=== PATIENT | female | born 1975 | race Caucasian/White ===

== ENCOUNTER 2017-12-03 15:13 | Emergency (ER) | payer BC, OTHER ==
--- NOTE | 2017-12-03 15:39 | EDM.PDOC ---
ED HPI GENERAL MEDICAL PROBLEM - General Chief Complaint: Back Pain or Injury Stated Complaint: BACK PAIN, L ARM TINGLING Time Seen by Provider: 12/03/17 15:38 - History of Present Illness INITIAL COMMENTS - FREE TEXT/NARRATIVE: 42-year-old female presents emergency room with sudden onset back pain left arm numbness tingling and heaviness. The patient was at work she shifted in her chair had sudden mid back pain at the lower level of her scapula. With this the pain was very sharp lasted about 30 minutes. This pain did for the most part resolve to fairly mild pain with this she had heaviness and tingling in her left arm. This has remained through the remainder of the day. She did not have nausea or vomiting with this and really no shortness of breath she's had no neck pain or lower back pain. The pains been between her shoulder blades slightly below this level she has not had knee pain in the front of her chest. The patient does smoke. Middle Back Pain Score (Numeric/FACES): 8 - Related Data Allergies Allergy/AdvReac Type Severity Reaction Status Date / Time amoxicillin Allergy Vomiting Verified 12/03/17 15:22 erythromycin base Allergy Vomiting Verified 12/03/17 15:22 Penicillins Allergy Hives Verified 12/03/17 15:22 tetracycline Allergy Vomiting Verified 12/03/17 15:22 Home Meds: Home Meds FLUoxetine [PROzac] 40 mg PO DAILY 12/03/17 [History] Gabapentin [Neurontin] 300 mg PO DAILY 12/03/17 [History] Levothyroxine Sodium [Synthroid] 150 mcg PO DAILY 12/03/17 [History] Omeprazole 40 mg PO DAILY 12/03/17 [History] Venlafaxine HCl [Venlafaxine HCl ER] 300 mg PO DAILY 12/03/17 [History] busPIRone [Buspar] 15 mg PO BID 12/03/17 [History] Past Medical History Cardiovascular History: Reports: High Cholesterol Gastrointestinal History: Reports: GERD Psychiatric History: Reports: Anxiety, Depression Endocrine/Metabolic History: Reports: Hypothyroidism - Past Surgical History HEENT Surgical History: Reports: Tonsillectomy GI Surgical History: Reports: Cholecystectomy Social & Family History - Tobacco Use Smoking Status *Q: Current Every Day Smoker Years of Tobacco use: 9 Packs/Tins Daily: 0.4 - Recreational Drug Use Recreational Drug Use: No ED ROS GENERAL - Review of Systems Review Of Systems: See Below Constitutional: Reports: No Symptoms HEENT: Reports: No Symptoms Respiratory: Reports: No Symptoms Cardiovascular: Denies: Chest Pain Endocrine: Reports: No Symptoms GI/Abdominal: Reports: No Symptoms : Reports: No Symptoms Musculoskeletal: Reports: Back Pain. Denies: No Symptoms Skin: Reports: No Symptoms Neurological: Reports: No Symptoms Psychiatric: Reports: No Symptoms Hematologic/Lymphatic: Reports: No Symptoms Immunologic: Reports: No Symptoms ED EXAM, UPPER BACK/NECK PAIN - Physical Exam Exam: See Below Exam Limited By: No Limitations General Appearance: Alert, No Apparent Distress Head Exam: Atraumatic, Normocephalic Neck Exam: Non-Tender, Full Range of Motion, Normal Alignment, Normal Inspection GI/Abdominal: Normal Bowel Sounds, Soft, Non-Tender Back Exam: Normal Inspection. No: CVA Tenderness (L), CVA Tenderness (R) Extremities: Other (Left arm examined no appreciable problems identified around the shoulder she has no tenderness in the deltoid bandage area and no provoking discomfort in the shoulder elbow has good range of motion no difficulties wrist appears normal no abnormalities she does have a positive Tinel's with distal paresthesias reversed Phalen's and Phalen's are both mildly positive) Neurologic: No Motor/Sensory Deficits Psychiatric: Normal Affect, Normal Mood Skin Exam: Normal Color, Warm/Dry Lymphatic: No Adenopathy Course - Vital Signs Last Recorded V/S: Last Vital Signs Temp 36.8 C 12/03/17 15:25 Pulse 100 12/03/17 15:25 Resp 20 12/03/17 15:25 BP 160/94 H 12/03/17 15:25 Pulse Ox 100 12/03/17 15:25 - Orders/Labs/Meds Orders: Active Orders 24 hr Category Date Time Status EKG 12 Lead [EKG Documentation Completion] [RC] STAT Care 12/03/17 15:35 Active Chest 1V Frontal [CR] Stat Exams 12/03/17 15:59 Taken Labs: Laboratory Tests 12/03/17 12/03/17 12/03/17 Range/Units 16:10 16:10 16:10 WBC 6.69 (3.98-10.04) K/mm3 RBC 4.70 (3.98-5.22) M/mm3 Hgb 14.5 (11.2-15.7) gm/L Hct 43.6 (34.1-44.9) % MCV 92.8 (79.4-94.8) fl MCH 30.9 (25.6-32.2) pg MCHC 33.3 (32.2-35.5) g/dl RDW Std Deviation 44.3 (36.4-46.3) fL Plt Count 287 (182-369) K/mm3 MPV 9.5 (9.4-12.3) fl Neutrophils % (Manual) 54 (40-60) % Band Neutrophils % 0 (0-10) % Lymphocytes % (Manual) 33 (20-40) % Atypical Lymphs % 0 % Monocytes % (Manual) 13 H (2-10) % Eosinophils % (Manual) 0 L (0.7-5.8) % Basophils % (Manual) 0 L (0.1-1.2) Platelet Estimate Adequate RBC Morph Comment Normal PT 10.0 (8.0-13.0) SECONDS INR 0.94 APTT 28 (22-36) SECONDS D-Dimer, Quantitative (0.19-0.59) mg/L Sodium 137 (136-145) mEq/L Potassium 3.8 (3.5-5.1) mEq/L Chloride 101 (98-107) mEq/L Carbon Dioxide 30 (21-32) mEq/L Anion Gap 9.8 (5-15) BUN 12 (7-18) mg/dL Creatinine 0.8 (0.55-1.02) mg/dL Est Cr Clr Drug Dosing 84.11 mL/min Estimated GFR (MDRD) > 60 (>60) mL/min BUN/Creatinine Ratio 15.0 (14-18) Glucose 96 (74-106) mg/dL Calcium 9.6 (8.5-10.1) mg/dL Total Bilirubin 0.3 (0.2-1.0) mg/dL AST 13 L (15-37) U/L ALT 20 (14-59) U/L Alkaline Phosphatase 98 (46-116) U/L Troponin I < 0.017 (0.00-0.056) ng/mL Total Protein 7.3 (6.4-8.2) g/dl Albumin 3.7 (3.4-5.0) g/dl Globulin 3.6 gm/dL Albumin/Globulin Ratio 1.0 (1-2) 12/03/17 Range/Units 16:10 WBC (3.98-10.04) K/mm3 RBC (3.98-5.22) M/mm3 Hgb (11.2-15.7) gm/L Hct (34.1-44.9) % MCV (79.4-94.8) fl MCH (25.6-32.2) pg MCHC (32.2-35.5) g/dl RDW Std Deviation (36.4-46.3) fL Plt Count (182-369) K/mm3 MPV (9.4-12.3) fl Neutrophils % (Manual) (40-60) % Band Neutrophils % (0-10) % Lymphocytes % (Manual) (20-40) % Atypical Lymphs % % Monocytes % (Manual) (2-10) % Eosinophils % (Manual) (0.7-5.8) % Basophils % (Manual) (0.1-1.2) Platelet Estimate RBC Morph Comment PT (8.0-13.0) SECONDS INR APTT (22-36) SECONDS D-Dimer, Quantitative 0.22 (0.19-0.59) mg/L Sodium (136-145) mEq/L Potassium (3.5-5.1) mEq/L Chloride (98-107) mEq/L Carbon Dioxide (21-32) mEq/L Anion Gap (5-15) BUN (7-18) mg/dL Creatinine (0.55-1.02) mg/dL Est Cr Clr Drug Dosing mL/min Estimated GFR (MDRD) (>60) mL/min BUN/Creatinine Ratio (14-18) Glucose (74-106) mg/dL Calcium (8.5-10.1) mg/dL Total Bilirubin (0.2-1.0) mg/dL AST (15-37) U/L ALT (14-59) U/L Alkaline Phosphatase (46-116) U/L Troponin I (0.00-0.056) ng/mL Total Protein (6.4-8.2) g/dl Albumin (3.4-5.0) g/dl Globulin gm/dL Albumin/Globulin Ratio (1-2) Meds: Medications Discontinued Medications Generic Name Dose Route Start Last Admin Trade Name Kvng PRN Reason Stop Dose Admin Aspirin 325 mg 12/03/17 15:57 12/03/17 16:05 Ecotrin PO 12/03/17 15:58 325 mg ONETIME ONE Administration Sucralfate 1 gm 12/03/17 15:57 12/03/17 16:39 Carafate PO 12/03/17 15:58 1 gm ONETIME ONE Administration - Re-Assessments/Exams Free Text/Narrative Re-Assessment/Exam: 12/03/17 17:19 Laboratory evaluation included troponin is negative chest x-ray is negative. The patient was placed in a carpal tunnel splint this may be helping a little bit with her arm discomfort. She is not been on very long. The patient has a heart score of 1 but this is a atypical presentation for a potential anginal equivalent. At this point I don't believe this is cardiac in origin however patient does have a few risk factors the questions has been asked we'll get her scheduled for stress Cardiolite. Patient will start daily baby aspirin. 12/03/17 17:23 Departure - Departure Time of Disposition: 17:25 Disposition: Home, Self-Care 01 Clinical Impression: Mid back pain, Left upper extremity numbness, Carpal tunnel syndrome on left - Discharge Information Referrals: Marlyn Yepez NP [Primary Care Provider] - Forms: ED Department Discharge Additional Instructions: Return to the emergency room with any questions problems worsening symptoms. We have ordered a stress Cardiolite for you. This is a stress test for your heart to ensure no significant underlying heart problems exist. Get this done as scheduled and follow-up with your regular provider 2 days after this is done. Start baby aspirin 81 mg daily. For your carpal tunnel syndrome wear the splint at night while sleeping. - My Orders Last 24 Hours: My Active Orders 12/03/17 15:35 EKG 12 Lead [EKG Documentation Completion] [RC] STAT 12/03/17 15:59 Chest 1V Frontal [CR] Stat - Assessment/Plan Last 24 Hours: My Active Orders 12/03/17 15:35 EKG 12 Lead [EKG Documentation Completion] [RC] STAT 12/03/17 15:59 Chest 1V Frontal [CR] Stat
[2017-12-03] MEDS ORDERED: Aspirin 325 MG Tab.EC PO ONE (15:57)
[2017-12-03] MEDS ORDERED: Sucralfate Suspension 1 GM/10 ML Cup PO ONE (15:57)
--- NOTE | 2017-12-04 11:14 | CR ---
Chest: Frontal view of the chest was obtained. Comparison: No prior chest x-ray. Heart size and mediastinum are normal. Lungs are clear. Bony structures are grossly intact. Impression: 1. Nothing acute is seen on frontal chest x-ray. Diagnostic code #1
== END 2017-12-03 17:40 | disposition home or self-care (01) ==
LOC: JD.ED 15:13
DX: G56.02 Carpal tunnel syndrome, left upper limb (principal); E78.00 Pure hypercholesterolemia, unspecified; K21.9 Gastro-esophageal reflux disease without esophagitis; F32.9 Major depressive disorder, single episode, unspecified; E03.9 Hypothyroidism, unspecified; F17.210 Nicotine dependence, cigarettes, uncomplicated; Z79.899 Other long term (current) drug therapy; Z88.0 Allergy status to penicillin; Z88.1 Allergy status to other antibiotic agents
CPT/HCPCS: 36415; 71045; 80053; 84484; 85025; 85379; 85610; 85730; 93005; 99284; A9270